=== PATIENT | male | born 1945 | race Caucasian/White ===

== ENCOUNTER 2020-07-22 06:30 | Day surgery (SDC) | payer MEDICARE ==
[~2020-07-22] VITALS: Ht 170.2 cm; Wt 80.8 kg
[~2020-07-22 06:30] MED LIST: BUPIVACAINE/PF 0.25% ONE
[2020-07-22 07:26] VITALS: BP 167/98
[2020-07-22] MEDS ORDERED: LISI-170 PO (07:32)
[2020-07-22] MEDS ORDERED: HYDR-3245 PO (07:32)
[2020-07-22] MEDS ORDERED: OMEP-110 PO (07:32)
[2020-07-22] MEDS ORDERED: CHOL10003 PO (07:32)
[2020-07-22] MEDS ORDERED: POTA10TA PO (07:32)
[2020-07-22] MEDS ORDERED: ZINC30TA2 PO (07:32)
[2020-07-22] MEDS ORDERED: MULT-658 PO (07:32)
[2020-07-22] MEDS ORDERED: CHLORHEXIDINE 15 ML UDC ONE (07:36)
[2020-07-22] MEDS ORDERED: CHLORHEXIDINE 15 ML UDC MM ONE (08:00)
[2020-07-22] MEDS ORDERED: LACTATED RINGERS 1,000 ML IV SCH (08:00)
[2020-07-22] MEDS ORDERED: FENTANYL PF 250 MCG/5ML ONE (08:10)
[2020-07-22] MEDS ORDERED: MIDAZOLAM 1 MG/ML, 2ML ONE (08:10)
[2020-07-22 08:21] LABS: ALBUMIN 4.1 g/dL (3.4-5.0); ANION GAP 8 mmol/L (5-15); CALCIUM 9.7 mg/dL (8.5-10.1); CHLORIDE 106 mmol/L (98-107)
[2020-07-22 08:26] LABS: ALANINE AMINOTRANSFERASE 21 U/L (12-78); ALKALINE PHOSPHATASE 65 U/L (45-117); BILIRUBIN,TOTAL 0.9 mg/dL (0.2-1.0); CREATININE 1.11 mg/dL (0.7-1.3); TOTAL PROTEIN 7.6 g/dL (6.4-8.2)
[2020-07-22] MEDS ORDERED: PHENYLEPHRINE 10 MG/ML ONE (08:52)
[2020-07-22] MEDS ORDERED: ROCURONIUM 10 MG/ML,10ML ONE (08:52)
[2020-07-22] MEDS ORDERED: SUCCINYLCHOLINE 20 MG/ML, 10ML ONE (08:52)
[2020-07-22] MEDS ORDERED: ONDANSETRON 2MG/ML, 2ML ONE (08:52)
[2020-07-22] MEDS ORDERED: PROPOFOL 10 MG/ML, 20ML ONE (08:52)
[2020-07-22] MEDS ORDERED: EPHEDRINE 50 MG/ML, 1ML ONE (08:52)
[2020-07-22] MEDS ORDERED: DEXAMETHASONE 4 MG/ML, 1ML ONE (08:52)
[2020-07-22] MEDS ORDERED: CEFAZOLIN 1,000 MG ONE (08:52)
[2020-07-22] MEDS ORDERED: ONDANSETRON 2MG/ML, 2ML IVPush PRN (11:30)
[2020-07-22] MEDS ORDERED: METHOCARBAMOL 1,000 MG in DEXTROSE 5% 100 ML IV PRN (11:30)
[2020-07-22] MEDS ORDERED: HYDROmorphone 1 MG/ML, 1ML INJ IVPush PRN (11:30)
[2020-07-22] MEDS ORDERED: PROMETHAZINE 25 MG/ML, 1ML IVPush PRN (11:30)
[2020-07-22] MEDS ORDERED: PROMETHAZINE 25 MG SUPP PR PRN (11:30)
[2020-07-22] MEDS ORDERED: OXYcodone 5 MG/5 ML ORAL.SOL UDC PO PRN (11:30)
[2020-07-22] MEDS ORDERED: FENTANYL PF 100 MCG/2ML IV PRN (11:30)
[2020-07-22] MEDS ORDERED: ACETAMINOPHEN 325 MG TABLET PO PRN (11:30)
== END 2020-07-22 13:20 | disposition home or self-care (01) ==
LOC: OUT 06:30
PROVIDERS: ATTEND Orthopaedic Surgery
DX: S46.011A Strain of muscle(s) and tendon(s) of the rotator cuff of right shoulder, initial encounter (principal); S46.111A Strain of muscle, fascia and tendon of long head of biceps, right arm, initial encounter; S43.431A Superior glenoid labrum lesion of right shoulder, initial encounter; M75.41 Impingement syndrome of right shoulder; M75.01 Adhesive capsulitis of right shoulder; G89.18 Other acute postprocedural pain; I10 Essential (primary) hypertension; K21.9 Gastro-esophageal reflux disease without esophagitis; I48.91 Unspecified atrial fibrillation; Z20.822 Contact with and (suspected) exposure to COVID-19; Z79.891 Long term (current) use of opiate analgesic; Z79.899 Other long term (current) drug therapy; Z87.891 Personal history of nicotine dependence; X50.9XXA Other and unspecified overexertion or strenuous movements or postures, initial encounter; Y93.89 Activity, other specified; Y92.89 Other specified places as the place of occurrence of the external cause; Y99.8 Other external cause status
CPT/HCPCS: 29823; 29826; 29827; 36415; 64415; 80053; 87635; 93005; C1713; J0330; J0690; J1100; J2250; J2370; J2405; J2704; J2800; J3010; J7120